=== PATIENT | male | born 1990 | race Caucasian/White ===

== ENCOUNTER 2019-01-30 09:03 | Emergency (ER) | payer SELFPAY ==
[~2019-01-30] VITALS: Ht 160 cm; Wt 57.0 kg
[2019-01-30 09:19] VITALS: BP 120/77
== END 2019-01-30 10:04 | disposition home or self-care (01) ==
LOC: ER 09:03
DX: T16.2XXA Foreign body in left ear, initial encounter (principal); X58.XXXA Exposure to other specified factors, initial encounter; Y93.89 Activity, other specified; Y92.89 Other specified places as the place of occurrence of the external cause; R03.0 Elevated blood-pressure reading, without diagnosis of hypertension
CPT/HCPCS: 99284; Z7610